=== PATIENT | male | born 1970 | race Caucasian/White ===

== ENCOUNTER → 2019-12-30 15:21 | Outpatient (CLI) | payer OTHER, SELFPAY ==
--- NOTE | ~2019-12-30 | CT_ITS ---
EXAMINATION: CT sinus wo con DATE: 12/30/2019 15:37 INDICATION: Right ear pain TECHNIQUE: Computed tomography (CT) of the paranasal sinuses was performed without contrast. Iterativ e reconstruction technique was employed. Exam dose: 274.70 mGy-cm total exam DLP. COMPARISON: None FINDINGS: There is leftward deviation of the nasal septum. There is asymmetric soft tissue swelling o f the left inferior nasal turbinate. There is wilfrid bullosa and interlamellar cell of the right midd le nasal turbinate. The ostiomeatal units are patent. There is mild soft tissue thickening of the right frontal sinus and septal soft tissue thickening of the ethmoid air cells bilaterally. The paranasal sinuses otherwise are normally developed and aerated . The mastoid air cells are normally developed and aerated. IMPRESSION: Mild right frontal and bilateral ethmoid septal soft tissue thickening Leftward deviation of nasal septum Wilfrid bullosa and intralamellar cell of right middle nasal turbinate Reviewed, dictated and finalized at [facility]. Reviewed, dictated and finalized at [facility]. IMPRESSION: Mild right frontal and bilateral ethmoid septal soft tissue thicke antonio Leftward deviation of nasal septum Wilfrid bullosa and intralamellar cell of right middle nasal turbinate
== END ==
PROVIDERS: PCP Internal Medicine; Visit Provider Internal Medicine
DX: H92.01 Otalgia, right ear (principal); J34.2 Deviated nasal septum; J34.89 Other specified disorders of nose and nasal sinuses; J34.3 Hypertrophy of nasal turbinates
CPT/HCPCS: 70486

== ENCOUNTER 2020-02-20 02:48 | Outpatient (CLI) | payer OTHER, SELFPAY ==
[2020-02-20 18:02] LABS: SARS-CoV-2 RNA PCR Negative
== END 2020-02-20 02:49 | disposition home or self-care (01) ==
LOC: ANHCOVIDDT 02:49
PROVIDERS: PCP Internal Medicine; Visit Provider Internal Medicine Critical Care Medicine
DX: Z01.812 Encounter for preprocedural laboratory examination (principal); Z20.828 Contact with and (suspected) exposure to other viral communicable diseases
CPT/HCPCS: 87635; C9803; U0003

== ENCOUNTER 2020-03-12 00:16 | Outpatient (CLI) | payer OTHER, SELFPAY ==
[2020-03-12 19:24] LABS: SARS-CoV-2 RNA PCR Negative
== END 2020-03-12 00:17 | disposition home or self-care (01) ==
LOC: ANHCOVIDDT 00:16
PROVIDERS: PCP Internal Medicine; Visit Provider Internal Medicine Critical Care Medicine
DX: Z20.828 Contact with and (suspected) exposure to other viral communicable diseases (principal)
CPT/HCPCS: 87635; C9803; U0003

== ENCOUNTER 2020-05-10 03:45 | Outpatient (CLI) | payer OTHER, SELFPAY ==
[2020-05-14 01:27] LABS: SARS-CoV-2 RNA PCR Negative
== END 2020-05-10 03:46 | disposition home or self-care (01) ==
LOC: ANHCOVIDDT 03:45
PROVIDERS: PCP Internal Medicine; Visit Provider Internal Medicine Critical Care Medicine
DX: Z20.822 Contact with and (suspected) exposure to COVID-19 (principal)
CPT/HCPCS: C9803; U0003; U0005

== ENCOUNTER → 2020-05-31 01:19 | Outpatient (CLI) | payer OTHER, SELFPAY ==
[2020-05-31 18:28] LABS: SARS-CoV-2 RNA PCR Negative
== END ==
PROVIDERS: PCP Internal Medicine; Visit Provider Internal Medicine Critical Care Medicine
DX: Z01.812 Encounter for preprocedural laboratory examination (principal); Z20.822 Contact with and (suspected) exposure to COVID-19
CPT/HCPCS: C9803; U0003; U0005

== ENCOUNTER → 2020-07-07 00:06 | Outpatient (CLI) | payer OTHER, SELFPAY ==
[2020-07-07 17:14] LABS: SARS-CoV-2 RNA PCR Negative
== END ==
PROVIDERS: PCP Internal Medicine; Visit Provider Internal Medicine Critical Care Medicine
DX: Z01.812 Encounter for preprocedural laboratory examination (principal); Z20.822 Contact with and (suspected) exposure to COVID-19
CPT/HCPCS: C9803; U0003; U0005

== ENCOUNTER 2020-07-09 09:17 | Outpatient (CLI) | payer OTHER, SELFPAY ==
--- NOTE | 2020-07-25 16:28 | WPDSLEEPSTUD ---
Sleep Study Date of Study: 07/09/20 Ordering Provider: Erick Escobar APRN Interpreting Physician: Cathy Cordova MD Sleep Study Type: Split Polysomnogram Height: 1.75 m Weight: 79.379 kg Body Mass Index: 25.8 Neck Circumference (inches): 16.5 [place]: 12 Reason for Sleep Study 08/02/2004 mild CHYNA with AHI 8.5; was on CPAP but did not derive benefit so he quit using it, now using mouthguard; Lifelong excessive sleepiness Sleep History Oscar Washington is a 49 year old man with a history of obstructive sleep apnea syndrome diagnosed in 2000. At the time he was having loud snoring. In 2000, he had sinus surgery to remove bone from his nose and to remove his uvula with improvement in snoring but no improvement in his sleep quality. He has also had a tonsillectomy. He has had excessive daytime sleepiness for many years. He has had difficulty getting up and out of bed. For years he has had difficulty at sleep due to excessive sleepiness. He wakes up frequently at night and does not feel rested in the morning. His continues to say that he snores. His body mass index is improved, now it is 25.8 previously was 28.7 in 2004. He has tried melatonin, trazodone and a mouthguard without improvement in sleep. He does not awaken at night with heartburn, belching or coughing. He does not awaken from sleep feeling short of breath. He rarely has trouble sleeping with a cold. He does not gasp for breath at night and does not have breathing problems at night observed by others. He occasionally sweats excessively at night. He does not notice his heart pounding or beating irregularly night. He occasionally falls asleep during the day, rarely involuntarily, never while driving. He does not have loss of muscle tone with strong emotion. He occasionally has daytime difficulties due to excessive sleepiness, works as a health program director. He does not feel paralyzed on waking or falling asleep. He rarely has vivid dreamlike scenes upon awakening or falling asleep. He is not afraid to go to sleep. He rarely has nightmares. He occasionally remembers his dreams. He rarely has racing thoughts. He occasionally feels sad, depressed and anxious. He occasionally has muscular tension. He does not notice parts of his body jerking. He does not kick at night nor have crawling and aching feelings in his legs at night. He rarely has any kind of leg pain at night, usually is hip. He does not have morning jaw pain and does not grind his teeth during sleep. He rarely is bothered by pain during the day. He rarely is awakened by pain at night. He occasionally wakes up feeling stiff in the morning. He does not awaken with sore achy muscles are pain in the spine. He has fatigue, depression, seasonal allergies and concentration difficulties. His normal bedtime is 10:30 p.m. falling asleep within 1-5 minutes, typically waking up between 2 and 5 times during the night. While awake he sometimes goes to urinate and sometimes just rolls over in goes back to sleep. He wakes at 7 in the morning. On weekends, he goes to bed later, 11:30 p.m. and wakes at 10:00 a.m.. He estimates getting 7-1/2 to 8-1/2 hours of sleep at night. He does not take naps. A short nap may be refreshing. He is usually drowsy in the morning for 1 hour or longer. He never feels rested. Habits: Quit tobacco long ago. Caffeine on average 6-10 beverages a day. Alcohol on average 1-4 beverages when he drinks, but not daily; he consumes alcohol 2-4 times per week. No recreational drugs. [facility] Past Medical History Medical History Anxiety Dysphagia History of calculus of gallbladder Hypogonadism Mixed hyperlipidemia CHYNA (obstructive sleep apnea) Surgical History Surgical History (Updated 07/25/20 @ 17:00 by Cathy Cordova MD) H/O right wrist surgery H/O sinus surgery History of cervical discectomy History of cholecystectomy Hist
[2020-07-25 16:31] VITALS: BMI 25.8
== END 2020-07-09 09:18 | disposition home or self-care (01) ==
LOC: ANHCSM 09:17
PROVIDERS: PCP Internal Medicine; Visit Provider Nurse Practitioner Family
DX: G47.33 Obstructive sleep apnea (adult) (pediatric) (principal); Z79.899 Other long term (current) drug therapy
CPT/HCPCS: 95811

== ENCOUNTER → 2020-08-23 00:03 | Outpatient (CLI) | payer OTHER, SELFPAY ==
[2020-08-23 19:15] LABS: SARS-CoV-2 RNA PCR Negative
== END ==
PROVIDERS: PCP Internal Medicine; Visit Provider Internal Medicine Gastroenterology
DX: Z01.812 Encounter for preprocedural laboratory examination (principal); Z20.822 Contact with and (suspected) exposure to COVID-19
CPT/HCPCS: C9803; U0003; U0005

== ENCOUNTER 2020-08-26 00:49 | Day surgery (SDC) | payer OTHER, SELFPAY ==
[2020-08-13 12:21] VITALS: BMI 25.9
--- NOTE | 2020-08-25 11:39 | WPDANESEPPF ---
Anes - Initial Pre Proc Eval Procedure: Operation Date: 08/26/20 08:00 Proposed Procedures p Screening Colonoscopy - John Branham DO Date/Time: 08/25/20 11:39 Surgeon: John Branham DO Pre Op Diagnosis: neoplasm screening Patient Data Age: 49 Gender: M Height: 1.75 m Weight: 79.5 kg Allergies Allergy/AdvReac Type Severity Reaction Status Date / Time TAPE Allergy Unknown Hives Uncoded 08/26/20 06:41 Home Medications Medication Instructions Recorded Confirmed Type safety needles 25 gauge x 1 #50 each 04/09/19 07/27/20 History sildenafil 25 mg tablet 25 mg PO DAILY PRN 04/09/19 08/26/20 History syringe with needle, safety 3 mL #100 each 04/09/19 07/27/20 History 22 gauge x 1 1/2 testosterone cypionate 200 mg/mL 200 mg IM WEEKLY ml 04/09/19 08/26/20 History intramuscular oil hydrocortisone valerate 0.2 % 1 applic TOPICAL BID PRN #45 gm 04/15/19 08/26/20 Rx topical cream valacyclovir 1 gram tablet See Rx Instructions PO Q12H #30 09/01/19 08/26/20 Rx tablet rosuvastatin 5 mg tablet 5 mg PO DAILY #90 tablet 04/26/20 08/26/20 Rx diazepam 2 mg tablet 2 mg PO DAILY PRN #10 tablet 08/11/20 08/26/20 Rx bupropion HCl [Wellbutrin XL] 300 mg PO QAM 08/13/20 08/26/20 History doxycycline hyclate 100 mg PO DAILY 08/26/20 08/26/20 History hydrocortisone-pramoxine 1 applic RECTAL QID PRN 08/26/20 08/26/20 History Patient hx anesthesia problems: none Family hx anesthesia problems: none PMFSH Past Medical History Medical History Anxiety Dysphagia History of calculus of gallbladder Hypogonadism Mixed hyperlipidemia CHYNA (obstructive sleep apnea) Surgical History Surgical History H/O right wrist surgery H/O sinus surgery History of cervical discectomy History of cholecystectomy History of nasal surgery History of right hip replacement History of tonsillectomy History of uvulectomy S/P ACL reconstruction Status post right foot surgery Family History Family History Mother Hypertension High cholesterol Other Carcinoma of colon Social History Social History Smoking packs per day: 1 Smoking cigarettes per day: 20.0 Years smoked: 3 Smoking pack-years: 3.00 Smoking status: Former smoker Tobacco type: cigarettes Second hand tobacco smoke exposure: No Smoking end date: 04/23/90 Alcohol intake: current Drinks per week: 8 Substance use type: does not use Living arrangements: with family Gender identity (if verbalized by the patient): Male Spiritual care concerns: No Anes - Eval Final PreProcedure Day of Procedure 08/25/20 11:39 Patient weight: overweight Heart: regular rate and rhythm Lungs: clear to auscultation and normal air movement Airway: Mallampati scale class II Neurological: alert and oriented Last oral intake: >/= 8 hours ASA classification: III Emergent: no Anesthetic plan: proceed Anesthesia type and monitoring: general GIVS and standard monitoring Informed Consent: The patient's anesthetic plan and its attendant risks and benefits were discussed with the patient/family/POA. Questions were solicited and answers provided to the satisfaction of the patient/family/POA.
[2020-08-26 06:42] VITALS: BP 108/75; PULSE 91; RESP 18; TEMP 36.2; O2SAT 97
[2020-08-26] MEDS: LACTATED RINGERS 1,000 ML 150 ML IV CONT (06:50)
--- NOTE | 2020-08-26 07:52 | WPDGICN ---
GI Consult Note Consult date/time: 08/26/20 07:52 HPI: Reason for visit colonoscopy. This very pleasant gentleman seen request the primary physician. The patient was examined. Impression: Screening colonoscopy. The patient has a family history of colorectal cancer. CHYNA. HLD. Anxiety. Recommendation: Colonoscopy. History: This very pleasant gentleman is negative GI review systems. He has a family history of colorectal cancer. He is here for colonoscopy. Physical examination: General: very pleasant patient in no acute distress. HEENT: Head was normocephalic sclerae is clear mouth without masses neck was supple. Heart: Rate rhythm regular without S3 or S4. Lungs: CTA. Abdomen: Soft with no guarding or rigidity. Bowel sounds were active. Neurologic: Cranial nerves 2 through 12 intact. No focal defects. No clonus. Musculoskeletal system: Revealed no joint tenderness or swelling no muscle atrophy. Extremities: Reveal no significant edema. Skin: Warm and dry with normal turgor. Mental status: intact. Patient is alert and oriented. Review of Systems Review of Systems: All systems reviewed & are unremarkable except as noted in HPI and below PMFSH Past Medical History Medical History (Updated 08/26/20 @ 07:54 by John Branham DO) Anxiety Hypogonadism Mixed hyperlipidemia CHYNA (obstructive sleep apnea) Surgical History Surgical History (Updated 08/26/20 @ 07:54 by John Branham DO) H/O colonoscopy H/O right wrist surgery H/O sinus surgery History of cervical discectomy History of cholecystectomy History of nasal surgery History of right hip replacement History of tonsillectomy History of uvulectomy S/P ACL reconstruction Status post right foot surgery Family History Family History Mother Hypertension High cholesterol Other Carcinoma of colon Social History Social History Smoking packs per day: 1 Smoking cigarettes per day: 20.0 Years smoked: 3 Smoking pack-years: 3.00 Smoking status: Former smoker Tobacco type: cigarettes Second hand tobacco smoke exposure: No Smoking end date: 04/23/90 Alcohol intake: current Drinks per week: 8 Substance use type: does not use Living arrangements: with family Gender identity (if verbalized by the patient): Male Spiritual care concerns: No Meds Home Medications and Allergies Home Medications Medication Instructions Recorded Confirmed Type safety needles 25 gauge x 1 #50 each 04/09/19 07/27/20 History sildenafil 25 mg tablet 25 mg PO DAILY PRN 04/09/19 08/26/20 History syringe with needle, safety 3 mL #100 each 04/09/19 07/27/20 History 22 gauge x 1 / testosterone cypionate 200 mg/mL 200 mg IM WEEKLY ml 04/09/19 08/26/20 History intramuscular oil hydrocortisone valerate 0.2 % 1 applic TOPICAL BID PRN #45 gm 04/15/19 08/26/20 Rx topical cream valacyclovir 1 gram tablet See Rx Instructions PO Q12H #30 09/01/19 08/26/20 Rx tablet rosuvastatin 5 mg tablet 5 mg PO DAILY #90 tablet 04/26/20 08/26/20 Rx diazepam 2 mg tablet 2 mg PO DAILY PRN #10 tablet 08/11/20 08/26/20 Rx bupropion HCl [Wellbutrin XL] 300 mg PO QAM 08/13/20 08/26/20 History doxycycline hyclate 100 mg PO DAILY 08/26/20 08/26/20 History hydrocortisone-pramoxine 1 applic RECTAL QID PRN 08/26/20 08/26/20 History Allergies Allergy/AdvReac Type Severity Reaction Status Date / Time TAPE Allergy Unknown Hives Uncoded 08/26/20 06:41 Vital Signs Vital Signs - 24 hr 08/26/20 06:42 Temperature 36.2 C L Pulse Rate 91 Respiratory Rate 18 Blood Pressure 108/75 Pulse Oximetry 97
[2020-08-26 08:16] VITALS: BP 105/66; PULSE 92; RESP 19; O2SAT 92
[2020-08-26 08:26] VITALS: BP 101/62; PULSE 85; RESP 13; O2SAT 96
[2020-08-26 08:36] VITALS: BP 104/67; PULSE 80; RESP 12; O2SAT 96
== END 2020-08-26 08:45 | disposition home or self-care (01) ==
PROVIDERS: PCP Internal Medicine; Visit Provider Internal Medicine Gastroenterology
PROC: 0DJD8ZZ Inspection of Lower Intestinal Tract, Via Natural or Artificial Opening Endoscopic (ICD-10-PCS; CPT 45378; principal; 2020-08-26 08:00)
DX: Z12.11 Encounter for screening for malignant neoplasm of colon (principal); K57.30 Diverticulosis of large intestine without perforation or abscess without bleeding; K64.8 Other hemorrhoids; E78.5 Hyperlipidemia, unspecified; G47.33 Obstructive sleep apnea (adult) (pediatric); F41.9 Anxiety disorder, unspecified; Z80.0 Family history of malignant neoplasm of digestive organs; Z87.891 Personal history of nicotine dependence
CPT/HCPCS: 45378; C9803; J2001; J2704; J7120; U0003; U0005

== ENCOUNTER 2022-08-20 18:54 | Emergency (ER) | payer OTHER, SELFPAY ==
[2022-08-20 19:12] VITALS: BP 127/79; PULSE 91; RESP 18; TEMP 37.4; O2SAT 98
--- NOTE | 2022-08-20 19:40 | ED.URI ---
HPI - URI/Sore Throat General Chief Complaint: Upper Respiratory Infection Stated Complaint: Sore Throat/Cough Time Seen by Provider: 08/20/22 19:41 Source: patient, RN notes reviewed and old records reviewed Mode of arrival: ambulatory Limitations: no limitations History of Present Illness HPI Narrative: 51-year-old male presents to the [facility] with complaints of a sore throat for 2 days Denies any fevers, chest pain, abdominal pain. Has used [place] cough drops. Related Data Home Medications Medication Instructions Recorded Confirmed safety needles 25 gauge x 1 (BD #50 ea 04/09/19 06/23/22 Eclipse) syringe with needle, safety 3 mL #100 ea 04/09/19 06/23/22 22 gauge x 1 1/2 (BD Eclipse Luer-Brett) testosterone cypionate 200 mg/mL 200 mg IM WEEKLY 04/09/19 08/20/22 intramuscular oil (Depo-Testosterone) bupropion HCl 150 mg 24 hr tablet, 300 mg PO QAM 11/22/20 08/20/22 extended release (Wellbutrin XL) loratadine 10 mg tablet (Claritin) 10 mg PO .prn 12/20/21 08/20/22 tadalafil 5 mg tablet 5 mg PO .prn 06/23/22 08/20/22 Allergies Allergy/AdvReac Type Severity Reaction Status Date / Time TAPE Allergy Unknown Hives Uncoded 08/20/22 19:09 Review of Systems Review of Systems: All systems reviewed & are unremarkable except as noted in HPI and below Constitutional: Constitutional: Reports no additional constitutional complaints Eyes: Eyes: Reports no additional eye complaints ENT: Reports as per HPI Cardiovascular: Cardiovascular: Reports no additional cardiovascular complaints, Denies chest pain and Denies dyspnea Respiratory: Respiratory: Reports no additional respiratory complaints, Denies chest congestion, Denies cough and Denies dyspnea Gastrointestinal: Gastrointestinal: Reports no additional gastrointestinal complaints, Denies abdominal pain, Denies nausea and Denies vomiting Musculoskeletal: Musculoskeletal: Reports no additional musculoskeletal complaints Integumentary/Breasts: Skin/Breast: Reports system reviewed and no additional complaints, except as docu Neurologic: Reports system reviewed and no additional complaints, except as documented Psychiatric: Psychiatric: Reports no additional psychiatric complaints Allergic/Immunologic: Allergic/Immunologic: Reports no additional allergic/immunologic complaints PMFSH Past Medical History Medical History Anxiety COVID-19 Hypogonadism Mixed hyperlipidemia CHYNA (obstructive sleep apnea) Surgical History Surgical History H/O colonoscopy H/O right wrist surgery H/O sinus surgery History of cervical discectomy History of cholecystectomy History of nasal surgery History of right hip replacement History of tonsillectomy History of uvulectomy S/P ACL reconstruction Status post right foot surgery Family History Family History Mother Hypertension High cholesterol Other Carcinoma of colon Social History Social History Smoking packs per day: 1 Smoking cigarettes per day: 20.0 Years smoked: 3 Smoking pack-years: 3.00 Smoking status: Former smoker Tobacco type: cigarettes Second hand tobacco smoke exposure: No Smoking end date: 04/23/90 Alcohol intake: current Drinks per week: 12 Alcohol use details: social Substance use: never Substance use type: does not use Lack of Transportation: No Lack of Food: Never True Current Housing: I Have Housing Concerned About Future Housing: No Difficulty Paying Gas/Electric Bills: No Difficulty Paying for Meds: No Currently Unemployed: No Education: Bachelor's Degree Difficulty w/ Childcare or Family Care: No Living arrangements: with family Gender identity (if verbalized by the patient): Male Spiritual care concerns: No
== END 2022-08-20 19:50 | disposition home or self-care (01) ==
PROVIDERS: Emergency Provider Nurse Practitioner; PCP Internal Medicine
DX: J06.9 Acute upper respiratory infection, unspecified (principal); Z87.891 Personal history of nicotine dependence; E78.2 Mixed hyperlipidemia; F41.9 Anxiety disorder, unspecified; Z86.16 Personal history of COVID-19
CPT/HCPCS: 87081; 87880; 99213; G0463

== ENCOUNTER 2022-08-25 16:12 | Emergency (ER) | payer OTHER, SELFPAY ==
[2022-08-25 16:28] VITALS: BP 139/89; PULSE 86; RESP 16; TEMP 37.2; O2SAT 98
--- NOTE | 2022-08-25 17:18 | ED.URI ---
HPI - URI/Sore Throat General Chief Complaint: Upper Respiratory Infection Stated Complaint: Sinus Time Seen by Provider: 08/25/22 17:18 Source: patient and RN notes reviewed Mode of arrival: ambulatory Limitations: no limitations History of Present Illness HPI Narrative: 51-year-old male presented for complaint of extremely runny nose, sinus congestion, and coughing fits productive brown/yellow sputum. Denies sob, wheezing, n/v/d/f/c. Patient traveled this week. Taking mucinex for symptoms, and claritin and flonase regularly. Patient c/o similar symptoms last week and Tested negative for strep 08/20/22. MD elicited complaint: cough Related Data Home Medications Medication Instructions Recorded Confirmed safety needles 25 gauge x 1 (BD #50 ea 04/09/19 08/25/22 Eclipse) syringe with needle, safety 3 mL #100 ea 04/09/19 08/25/22 22 gauge x 1 1/2 (BD Eclipse Luer-Brett) testosterone cypionate 200 mg/mL 200 mg IM WEEKLY 04/09/19 08/25/22 intramuscular oil (Depo-Testosterone) bupropion HCl 150 mg 24 hr tablet, 300 mg PO QAM 11/22/20 08/25/22 extended release (Wellbutrin XL) loratadine 10 mg tablet (Claritin) 10 mg PO .prn 12/20/21 08/25/22 tadalafil 5 mg tablet 5 mg PO .prn 06/23/22 08/25/22 Allergies Allergy/AdvReac Type Severity Reaction Status Date / Time TAPE Allergy Unknown Hives Uncoded 08/25/22 16:34 Review of Systems Review of Systems: CONSTITUTIONAL: Denies malaise, chills, sweats, fever EYES: Denies visual changes, redness, or discharge ENT: Reports rhinorrhea, congestion, denies sinus pain, otalgia, sore throat CARDIOVASCULAR: Denies chest pain, palpitations, edema RESPIRATORY: Reports cough, post nasal drainage. Denies dyspnea GASTROINTESTINAL: Denies abdominal pain, nausea, vomiting, diarrhea SKIN: Denies rash or itching MUSCULOSKELETAL: Denies myalgia NEUROLOGIC: Denies headache PMFSH Past Medical History Medical History Anxiety COVID-19 Hypogonadism Mixed hyperlipidemia CHYNA (obstructive sleep apnea) Surgical History Surgical History H/O colonoscopy H/O right wrist surgery H/O sinus surgery History of cervical discectomy History of cholecystectomy History of nasal surgery History of right hip replacement History of tonsillectomy History of uvulectomy S/P ACL reconstruction Status post right foot surgery Family History Family History Mother Hypertension High cholesterol Other Carcinoma of colon Social History Social History Smoking packs per day: 1 Smoking cigarettes per day: 20.0 Years smoked: 3 Smoking pack-years: 3.00 Smoking status: Former smoker Tobacco type: cigarettes Second hand tobacco smoke exposure: No Smoking end date: 04/23/90 Alcohol intake: current Drinks per week: 12 Alcohol use details: social Substance use: never Substance use type: does not use Lack of Transportation: No Lack of Food: Never True Current Housing: I Have Housing Concerned About Future Housing: No Difficulty Paying Gas/Electric Bills: No Difficulty Paying for Meds: No Currently Unemployed: No Education: Bachelor's Degree Difficulty w/ Childcare or Family Care: No Living arrangements: with family Gender identity (if verbalized by the patient): Male Spiritual care concerns: No Exam Narrative: GENERAL: mildly Ill-appearing, nontoxic HEAD: Normocephalic EYES: PERRLA, conjunctivae clear ENT: Mucous membranes moist. Nasal congestion. pearly montiel with dull light reflex bilaterally; no tragal tenderness. Oropharynx erythematous without lesions or exudate, tonsils absent; no drooling, no hoarseness, no trismus, uvula midline. No tripod positioning, muffled voice, soft palate or pharyngeal wall bul
== END 2022-08-25 17:47 | disposition home or self-care (01) ==
PROVIDERS: Emergency Provider Nurse Practitioner Family; PCP Internal Medicine
DX: J06.9 Acute upper respiratory infection, unspecified (principal); F41.9 Anxiety disorder, unspecified; E78.2 Mixed hyperlipidemia; Z87.891 Personal history of nicotine dependence
CPT/HCPCS: 99213; G0463

== ENCOUNTER 2022-09-27 09:13 | Outpatient (CLI) | payer OTHER, SELFPAY ==
--- NOTE | 2022-10-17 16:48 | WPDSLEEPSTUD ---
Sleep Study Date of Study: 09/27/22 Ordering Provider: Cathy Cordova MD Interpreting Physician: Suzi Zavala, Sleep Study Type: Polysomnogram Height: 1.75 m Weight: 83.915 kg Body Mass Index: 27.3 Neck Circumference (inches): 16 [place]: 15 Reason for Sleep Study Previously diagnosed CHYNA. Failed CPAP, hx of UPPP and failed mandibular advancement device due to jaw pain and loose teeth. Doing PSG for Inspire. 07/09/2020 split night nocturnal polysomnogram : moderate obstructive sleep apnea with an AHI of 17.9, desaturation to 87% and moderate snoring. The optimal pressure is 9 cm using a small or medium Cardenas FX nasal pillow and a chin strap with a heated humidifier.? Sleep History The patient is a 51-year-old male with PTSD, ankylosing spondylitis, anxiety, hypogonadism, mixed hyperlipidemia, history of tobacco use and previously diagnosed sleep apnea that had a polysomnogram ordered by his sexologist as part of the evaluation process for the Inspire device. 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 He denies awakening from sleep short of breath. He rarely awakens at night with heartburn, belching or cough. He constantly snores loudly enough that others complain. He frequently has trouble sleeping when he has a cold. He denies waking up gasping for air during the night. He denies having breathing problems at night observed by himself or others. He denies sweating excessively at night. He denies having heart palpitations or irregular heartbeats during the night. He frequently falls asleep during the day but never while driving. He denies sleep paralysis and cataplexy. He frequently has trouble at school or work due to sleepiness. He occasionally experiences vivid dreamlike scenes upon awakening or falling asleep. He denies feeling afraid of going to sleep. He rarely has nightmares. He occasionally remembers his dreams. He occasionally has thoughts racing through his mind. He occasionally feels sad, depressed and anxious. He frequently has muscular tension. He denies noticing parts of his body jerk. He denies kicking during the night. He frequently has crawling and aching feelings in his legs and frequently has leg pain during the night. He denies grinding his teeth during sleep but frequently awakens with morning jaw pain. He is frequently bothered by pain during the day and frequently awakened by pain during the night. He occasionally wakes up feeling stiff in the morning. He occasionally wakes up withSore or achy muscles. He rarely wakes up with pain in the neck, spine or other joints. He goes to bed at 10:30 p.m. on weekdays and at midnight on the weekends. It takes him a few minutes to fall asleep. He wakes up over 5 times throughout the night to change positions but is able to fall back asleep within a few minutes. He wakes up at 7:00 a.m. on weekdays and between 9-10 a.m. on the weekends. He typically gets 7 hours of sleep per night. He will stay in bed for 15-45 minutes after waking up in the morning. He currently lives with his and 4 children. He denies consuming any caffeinated beverages within 2 hours of bedtime. He denies engaging in physical exercise before bedtime. He will read before falling asleep. He denies watching television before falling asleep. He will occasionally take naps in the afternoon or the evening. He consumes 10 caffeinated beverages throughout the day. He consumes 2-4 alcoholic beverages per day. He quit smoking cigarettes 31 years ago. He denies recreational drug use. [facility] Past Medical History Medical History Anxiety COVID-19 Hypogonadism Mixed hyperlipidemia CHYNA (obstructive sleep apnea) Surgical History Surgical History H/O colonoscopy H/O right wrist surgery H/O sinus surgery History of cervical discectomy History of cholecystectomy History of
[2022-10-17 17:09] VITALS: BMI 27.3
--- NOTE | 2022-10-18 10:51 | SLEEP ---
pt choice inspire
== END 2022-09-28 06:44 | disposition home or self-care (01) ==
LOC: ANHCSM 09:14
PROVIDERS: PCP Internal Medicine; Visit Provider Internal Medicine Critical Care Medicine
DX: G47.33 Obstructive sleep apnea (adult) (pediatric) (principal); E78.5 Hyperlipidemia, unspecified; Z87.891 Personal history of nicotine dependence
CPT/HCPCS: 95810

== ENCOUNTER 2023-11-06 14:05 | Outpatient (CLI) | payer OTHER, SELFPAY ==
--- NOTE | ~2023-11-06 | XR_ITS ---
XR wrist LT min 3V Ordering provider: Olman Little MD History: . M25.539 - Pain in unspecified wrist . Comparison: None. FINDINGS: BONES: No acute fracture or dislocation. No definite scaphoid fracture. JOINT SPACES: Well maintained. SOFT TISSUES: Normal. IMPRESSION: No acute osseous abnormality left wrist. Reviewed, dictated and finalized at [facility].
== END 2023-11-06 14:06 ==
LOC: MICIMG 14:06
PROVIDERS: PCP Family Medicine; Visit Provider Family Medicine
DX: M25.532 Pain in left wrist (principal)
CPT/HCPCS: 73110